=== PATIENT | male | born 1950 | race Caucasian/White ===

== ENCOUNTER 2023-10-04 09:00 | Day surgery (SDC) | payer MEDICARE, BC ==
[2023-10-04] MEDS ORDERED: Propofol 200 MG/20 ML SDV ONE (09:52)
[2023-10-04] MEDS ORDERED: fentaNYL 50 MCG/ML SDV ONE (09:52)
[2023-10-04] MEDS: Sodium Chloride 0.9% 1,000 ML IV SCH (09:55)
== END 2023-10-04 12:30 | disposition home or self-care (01) ==
LOC: JP.SDS 09:00
PROVIDERS: ATTEND Surgery
DX: Z12.11 Encounter for screening for malignant neoplasm of colon (principal); K63.5 Polyp of colon; I10 Essential (primary) hypertension; K21.9 Gastro-esophageal reflux disease without esophagitis; Z86.010 Personal history of colon polyps
CPT/HCPCS: 00811-QZ; J2704; J3010; J7030